=== PATIENT | female | born 1950 | race Caucasian/White ===

== ENCOUNTER 2016-05-30 19:06 | Inpatient (IN) | payer OTHER, MEDICARE ==
[~2016-05-30] VITALS: Ht 152.4 cm; Wt 57.4 kg
--- NOTE | ~2016-05-30 | ECH ---
Transthoracic Echocardiography Report (TTE) Demographics Patient Name ANGIE JEFFREY Date of Study 05/31/2016 Patient Number [id number] Visit Number [id number] Date of 1950 Room Number 313 Accession Number [id number] Gender Female Age 66 year(s) Referring King Hemanth Hilario MD Manager Human Resources Krystal Herndon [facility] Physician Lele Herrera Physician Interpreting Fadumo Robles MD Cfo Physician Supervising Ordering Physician Lele Herrera MD/BUBBAP Nurse Stress Cyber Crime Investigator Conclusions Summary Technically adequate exam. The estimated left ventricular ejection fraction is 50-55%. Segmental wall motion abnormalities noted. Diastolic assessment reveals Grade I diastolic dysfunction. No significant valvular abnormalities. Procedure Type of Study TTE procedure:Echo Complete SF. Procedure Date Date: 05/31/2016 Start: 08:29 AM Technical Quality: Good visualization Indications:Elevated Troponin. Additional Indications:history of nonischemic cardiomyopathy Appropriate Use Criteria: 9 Height: 60 inches Weight: 110 pounds BSA: 1.45 m Rhythm: Sinus tachycardia HR: 101 bpm BP: 99/67 mmHg M-Mode/2D Measurements LV Diastolic Dimension: 3.78 cm LV Systolic Dimension: 2.84 cm LV Septum Diastolic: 0.89 cm LV PW Diastolic: 0.69 cm AO Root Dimension: 2.59 cm Cardiac Output: 6.31 l/min LA Dimension: 3.21 cm Cardiac Index: 4.35 l/min*m LA volume index: 28 ml/m LVOT: 2.03 cm RV Base: 3.6 cm LVOT VTI: 19.32 cm RV Mid: 2.2 cm LV Stroke volume: 62.5 ml LV Stroke volume index: 43.1 ml/m TDI-S': 12 cm/s Doppler Measurements AV Peak Velocity: 1.2 m/s MV Peak E-Wave: 0.78 m/s AV Peak Gradient: 5.76 mmHg MV Peak A-Wave: 0.94 m/s AV Mean Gradient: 3.26 mmHg MV E/A Ratio: 0.83 LVOT Peak Velocity: 0.99 m/s MV P1/2t: 36.8 msec AV Area (Continuity):2.72 cm MV Deceleration Time: 126.9 msec TR Velocity:2.58 m/s MV Area (PHT): 5.98 cm TR Gradient:26.63 mmHg PV Peak Velocity: 0.9 m/s Estimated RAP:5 mmHg PV Peak Gradient: 3.21 mmHg Estimated RVSP: 32 mmHg Estimated PASP: 31.63 mmHg RA Area: 10.43 cm Findings Left Ventricle The left ventricle is normal in size . Diastolic assessment reveals Grade I diastolic dysfunction. Right Ventricle Normal right ventricle structure and function. Left Atrium Normal left atrial size. Right Atrium Normal right atrial size. Mitral Valve Normal mitral valve structure and function. Trivial mitral regurgitation by color Doppler. Aortic Valve The aortic valve was not well imaged. There is trivial aortic regurgitation by color Doppler. Tricuspid Valve Normal tricuspid valve structure and function. Mild tricuspid regurgitation by color Doppler. Estimated pulmonary pressures within normal range. Pulmonic Valve Normal pulmonic valve structure and function. Pericardial Effusion No evidence of pericardial effusion. Miscellaneous Visualized portions of the aortic root and ascending aorta appear normal in size. Pleural Effusion No evidence of pleural effusion. Contractility Score LV regional wall motion:(0-Non visualized 1-Normal 2-Hypokinesis 3-Akinesis 4-Dyskinesis 5-Aneurysm) Signature
--- NOTE | 2016-05-31 06:59 | ER ---
ADMIT: 05/30/2016 RM/LOC: 313 [facility] MR#: [id number] [address] [address] ANGIE JEFFREY [address] [place] [address] Emergency Room Report SEX: F AGE: 66 : 1950 DATE: 05/30/2016 CHIEF COMPLAINT: Left flank pain. HISTORY OF PRESENT ILLNESS: The patient is a 66-year-old female with complicated medical history of chronic renal lithiasis, status post recent distal right ureterectomy with ureteral neocystostomy and ureteral stent in [place] in November and subsequent stent removal by Dr. Dorado. Pancreatic cancer in 2013, status post radiation and chemo with recurrence causing ureteral obstruction in 2015. Remote breast cancer in 2000, status post lumpectomy, radiation, chemo, and nonischemic cardiomyopathy, presumably due to chemotherapy with initial echo in 2009 showing severe inferior septal hypokinesis with EF of 0.3, most recent echo in April 2015, EF 0.55 with no wall motion abnormality. The patient presents today with left flank pain associated with nausea, vomiting, chronic diarrhea that she states began late last night. Denies any cough or dysuria. ALLERGIES: NONE. MEDICATIONS: Please see nurse's MAR. ILLNESSES: Nonischemic cardiomyopathy, hypertension, kidney stones and infection. Pancreatic cancer in 2013, status post radiation and chemo. Breast cancer in 2000, status post lumpectomy, chemo and radiation. Osteoporosis, multiple right shoulder dislocations. Hypothyroidism. Pancytopenia. Pneumothorax. 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 SOCIAL HISTORY: , nonsmoker, nondrinker. No illicit drugs. FAMILY HISTORY: Loss of son due to brain cancer 13 years ago. REVIEW OF SYSTEMS: A 12-point review of systems, negative for all other systems, illnesses, or operations except as outlined above. PHYSICAL EXAMINATION: VITAL SIGNS: Temp 101.1, pulse 107, respirations 16, BP 117/74, SaO2 of 96% on room air. GENERAL: Anxious, toxic appearing without jaundice or icterus. HEENT: Normocephalic. No evidence of epistaxis, rhinorrhea, or otorrhea. NECK: Supple without lymphadenopathy or thyromegaly. CHEST: Clear. Breath sounds equal. HEART: Tachycardic, regular without murmur, gallop, or edema. ABDOMEN: Soft, nontender, nondistended without mass or megaly. Bowel sounds hypoactive. ADMIT: 05/30/2016 RM/LOC: 313 [facility] MR#: [id number] [address] [place] [phone] ANGIE JEFFREY [address] [address] Emergency Room Report SEX: F AGE: 66 : 1950 BACK: Erect. Minimal left CVA tenderness. EXTREMITIES: No evidence of Homans sign, synovitis, or dermatitis. NEURO: EOMI. PERRLA. No evidence of drift, dysarthria, or ataxia. Gait not assessed. MENTAL STATUS: Alert, oriented, and cooperative without delusions, hallucinations, or abnormal thought content. MEDICAL DECISION MAKING: The patient's screen is positive for sepsis. Given [address] renal shows 10 mm distal left ureteral stone with marked hydro and staghorn calculi. A 3 mm distal right ureteral stone with minimal hydro postoperative changes. WBC 11.8, hemoglobin 10.2, platelet 129. Lactic 1.8, CRP 3.76, creatinine 2.9, procalcitonin 0.38, magnesium 1.4, lipase 40. Troponin 0.885. UA; 52 WBCs, 25 RBCs, 1+ blood, 2+ leukocyte esterase. Culture pending and blood culture pending. EKG shows sinus tachycardia with anterior septal wall Q-waves, unchanged from previous. The patient was covered with Levaquin 500 mg IV piggyback, Zofran and Dilaudid with marked improvement of pain. No further vomiting or diarrhea. Notified Dr. Dorado of consult in morning. Discussed case with Dr. Mina Royal, who agreed and gave orders to nursing staff. Due to the patient's presentation, findings, and intervention, 60 minutes of critical care is warranted. DIAGNOSES: 1. Obstructive uropathy with pyelonephritis. 2. Acute kidney injury secondary to obstructive uropathy with pyelonephritis. 3. Pancreatic cancer, metastatic, associated with recent distal right ureterectomy with ureteroneocystostomy and ureteral stent, subsequent removal. 4. Breast cancer in remote past. ADMIT: 05/30/2016 RM/LOC: 313 [facility] MR#: [id number] [address] [place] [id number] ANGIE JEFFREY [address] [place] [address] Emergency Room Report SEX: F AGE: 66 : 1950 5. Nonischemic cardiomyopathy with normal echocardiogram in April 2015. 6. Spurious elevation of troponin related to acute kidney injury. RECOMMENDATION: Admit inpatient PCU for Dr. Royal and Estrada. ADMISSION AND DISCHARGE CONDITION: Improved. Tyler Funes MD/ jaleel JOB #: [id number] CC: Javier Royal MD, Attending Physician Javier Royal MD, Family Physician MD Carlos Noguera MD Jeanne Ross-Muhlbach, PA-C
--- NOTE | 2016-06-05 08:10 | OR ---
ADMIT: 05/30/2016 RM/LOC: 313 [facility] MR#: [id number] [address] [address] ANGELANERYREEMAANGIE MURPHY Veena [address] [place] [address] Operative/Delivery Room Report SEX: F AGE: 66 : 1950 SURGERY DATE: 05/31/2016 SURGEON: Carlos Dorado MD PREOPERATIVE DIAGNOSIS: Bilateral distal ureteral calculi. POSTOPERATIVE DIAGNOSIS: Distal left ureteral calculus with no evidence of right ureteral calculus. PROCEDURE: Cystoscopy with bilateral ureteroscopy. Left laser lithotripsy with stone extraction. Left placement of double-J ureteral stent. ANESTHETIC: General. INDICATION FOR PROCEDURES: A 66-year-old female has a history of stone disease and developed approximately 24 hours ago abdominal discomfort. She presents to the emergency room at [facility] at which time an abdominal CT scan was obtained revealing a 3 mm stone in the distal right ureter. She is admitted now for treatment. DESCRIPTION OF OPERATION: After a suitable general endotracheal anesthetic was obtained, the patient was placed in the dorsal lithotomy position with her genitalia and surrounding skin prepped and draped in usual sterile fashion. A 23-Equatorial [place]ine[place] Olympus cystoscope was inserted under direct visualization with the anterior urethra appearing to be normal. Upon entering the bladder, the trigone was well developed with the left ureteral orifice in its normal position without efflux of urine. The right ureteral orifice was right of midline near the dome of the bladder. This was patulous with clear urine noted. A 0.03 Glidewire was inserted into the left ureteral orifice and advanced past the stone. At this point, the purulent material was noted exiting the ureteral orifice. The Glidewire was advanced until the tip of the wire that was in the renal pelvis. The cystoscope was then removed leaving the Glidewire indwelling. The semi-rigid ureteroscope was then inserted over the Glidewire. The scope was advanced into the bladder and then into the left ureteral orifice. The scope was slowly advanced up the ureter and just beyond the intramural tunnel, encountered a large solitary stone. The Glidewire was then removed and a 400 micron laser fiber obtained. With the use of the holmium laser, the stone was fragmented in its entirety with all stone fragments being removed from the ureter by means of the Zero Tip stone basket. Final inspection of the ureter revealed no evidence of retained stone fragments, perforation, or injury. A 0.03 Glidewire was then inserted through the ureteroscope and advanced until the tip of the Glidewire was in the renal pelvis. The ureteroscope was then removed leaving the Glidewire indwelling. The cystoscope was then backloaded over the Glidewire and a #6-Equatorial Guinean 26 cm double-J ureteral stent was inserted over the Glidewire positioning the stent within the renal pelvis, ureter, and bladder. The string was removed from the distal end of the stent. The Glidewire was then removed leaving the stent indwelling and in good position as noted on fluoroscopy. Attention was then turned to the right ureter. The 0.03 Glidewire was inserted into the right ADMIT: 05/30/2016 RM/LOC: 313 [facility] MR#: [id number] [address] [place] [phone] ANGIE JEFFREY [address] [address] Operative/Delivery Room Report SEX: F AGE: 66 : 1950 ureteral orifice and advanced until the tip of the Glidewire was in the renal pelvis. At this point, the scope was removed leaving the Glidewire indwelling. The semi-rigid ureteroscope was then inserted over the Glidewire and advanced into the right ureteral orifice under direct vision. The entire ureter was examined without encountering any stone disease. The scope was then slowly withdrawn without additional findings. The ureteroscope was removed without incident. A #16-Equatorial [place]an Fernandez catheter was then passed per urethra into the bladder and connected to straight drainage. The patient having tolerated the procedure well, was then taken to the recovery room in satisfactory condition. Carlos Dorado MD/ jaleel JOB #: [id number] CC: Javier Royal, Attending Physician Javier Royal, Family Physician Javier Royal MD
--- NOTE | 2016-06-05 08:10 | CO ---
ADMIT: 05/30/2016 RM/LOC: 419 [facility] MR#: [id number] [address] [address] ANGELANERYREEMAANGIE MURPHY Veena [address] [place] [address] Consultation SEX: F AGE: 66 : 1950 DATE OF CONSULTATION: 05/31/2016 ATTENDING PHYSICIAN: Javier Royal CONSULTING PHYSICIAN: Carlos Dorado MD PROBLEM: Bilateral ureteral calculi. HISTORY OF PRESENT ILLNESS: This 66-year-old female presented to the emergency room at [facility] yesterday with abdominal discomfort. She does have a history of stone disease and most recently underwent a hysterectomy, at which time the distal ureter was injured and underwent a ureteral reimplantation on the right, all of which was performed in [place]. On CT scan, she was found to have a 1-cm stone in the distal left ureter with a 3-mm stone in the distal right ureter, both of which are causing obstruction. Several stones were noted in each kidney. She is admitted now for treatment of her stone disease. PAST MEDICAL HISTORY: MEDICATIONS: 1. Synthroid 88 mcg daily. 2. Potassium chloride 40 mEq b.i.d. 3. Mag ox 800 mg b.i.d. 4. Cozaar 25 mg daily. 5. Coreg 3.125 mg b.i.d. ALLERGIES: MORPHINE. OPERATIONS: As previously stated. REVIEW OF SYSTEMS: She does have a history of pancreatic carcinoma in 2013, status post radiation and chemotherapy, with recurrence causing her ureteral obstruction last year. There is also a history of breast carcinoma having undergone a lumpectomy in 2000, this was then treated with radiation and chemotherapy, developing nonischemic cardiomyopathy due to the chemotherapy. An echocardiogram in 2009 did show severe inferior septal hypokinesis. She also has a history of essential hypertension and hypothyroidism. FAMILY HISTORY: Negative for urologic problems. SOCIAL HISTORY: She is . Nonsmoker and does not drink. PHYSICAL EXAMINATION: GENERAL: This is a healthy 66-year-old, no acute distress. ABDOMEN: Soft and without tenderness, guarding or rigidity throughout, no masses were noted throughout. EXTREMITIES: Full range of motion without deformity. NEUROLOGICAL: She is grossly intact. LABORATORY DATA: Sodium is 144, potassium 4.4, chloride 114, CO2 of 18, BUN ADMIT: 05/30/2016 RM/LOC: 419 [facility] MR#: [id number] [address] [address] ANGIE JEFFREY D [address] [place] [address] Consultation SEX: F AGE: 66 : 1950 28, glucose 109, creatinine of 3.1. CBC showed a white count of 6600 and hematocrit 26.0. IMPRESSION: Bilateral ureteral calculi causing obstruction to each renal unit, the left being greater than the right. PLAN: I have recommended cystoscopy with bilateral ureteroscopy and laser lithotripsy with bilateral stent placement. This will be performed sometime this morning. EDIT: 06/01/2016 1257 dhiraj Dorado MD/ jaleel JOB #: [id number] CC: Javier Royal, Attending Physician Javier Royal, Family Physician Javier Royal MD
--- NOTE | 2016-06-05 10:40 | CO ---
ADMIT: 05/30/2016 RM/LOC: 313 [facility] MR#: [id number] [facility]#: [id number] [address] [phone] RACHELERABobbi Curiel [address] [place] [address] Consultation SEX: F AGE: 66 : 1950 DATE OF CONSULTATION: 05/31/2016 ATTENDING PHYSICIAN: Javier Royal CONSULTING PHYSICIAN: Hemanth Moore MD REASON FOR CONSULTATION: History of cardiomyopathy and need for surgery. HISTORY OF PRESENT ILLNESS: The patient is a pleasant 66-year-old, female with no known history of coronary artery disease. She had a diagnostic left heart catheterization in 2009 after a diagnosis of cardiomyopathy with an EF of 30%. The heart cath showed no coronary artery disease. She was diagnosed with a nonischemic dilated cardiomyopathy most likely due to chemotherapy after breast cancer treatment. She did have an improvement of her cardiomyopathy with an EF to 55% per her last echo in April of 2015. She denies any chest pain, tightness, or heaviness. She has not had any shortness of breath with exertion, nor she has had any palpitations or syncope. She does not feel like she is holding any fluid in her legs or her abdomen. She presented because of bilateral flank pain and was diagnosed with bilateral kidney stones. She is in need of cystoscopy with bilateral ureteroscopy and laser lithotripsy with bilateral stent placement. She does have a history of stent placement in the past. She also has a history of pancreatic cancer. She does follow regularly in our clinic with Dr. Ion Bridges and last saw him in April of 2015. PAST MEDICAL HISTORY: Anemia, pancreatic cancer, breast cancer status post lumpectomy and chemotherapy, hypothyroidism, left renal calculus and right urethral obstruction, had a hyoid tumor removed at age 3, carpal tunnel release. She also has nonischemic dilated cardiomyopathy, along with hypertension. REVIEW OF SYSTEMS: Unable to obtain as the patient has intractable nausea and vomiting at this time other than what was reviewed in the HPI. FAMILY HISTORY: Positive for family history of diabetes along with prostate cancer, stroke, and a son who of brain cancer at age 18. SOCIAL HISTORY: She is . Her is in the room with her today. She was a homemaker. She has 1 son and 8 daughters. She has never smoked and does not use any alcohol. MEDICATIONS: Medications that she was taking at home include: 1. Coreg 3.125 mg one p.o. b.i.d., along with Cozaar 25 mg one p.o. daily. 2. Mag-Ox 800 mg b.i.d. 3. Potassium chloride 40 mEq b.i.d. 4. Synthroid 88 mcg daily. 5. Hydrocodone APAP q.4 hours p.r.n. 6. Lomotil one tab q.6 hours p.r.n. ADMIT: 05/30/2016 RM/LOC: 313 [facility] MR#: [id number] [address] [place] [phone] AGNIE JEFFREY [address] [place] [address] Consultation SEX: F AGE: 66 : 1950 ALLERGIES: SHE IS ALLERGIC TO MORPHINE. PHYSICAL EXAMINATION: Per Dr. Moore: VITAL SIGNS: Temp 98.3, pulse 91, respirations 19, blood pressure 107/65, O2 saturation 95%. Her blood pressures have ranged from the lower systolic of 87 to a high of 107. GENERAL: Ill-appearing, very nauseated, vomiting multiple times while we are in the room. SKIN: [place], warm and dry. EYES: Sclerae clear. No xanthelasmas. ENT: Oral mucosa is pink and moist. No jugular venous distention or carotid bruits. CHEST: Respirations are even and unlabored. Lungs are clear to auscultation. HEART: Regular rate and rhythm. Normal S1, S2. No murmurs, rubs or gallops. ABDOMEN: Soft and nontender. MUSCULOSKELETAL: Gait is normal. EXTREMITIES: Peripheral pulses palpable. No clubbing, cyanosis or edema. PSYCHIATRIC: Alert and oriented. Mood and affect are appropriate. LABORATORY AND X-RAY DATA: Blood cultures are no growth to date. Chest x-ray shows negative single view of the chest. White blood count 6.6, red blood count 2.6, hemoglobin 8.4, hematocrit 26.0 with a platelet count of 95. Lactic acid was 1.0, procalcitonin of 0.49. Sodium of 144, potassium 4.4 with a chloride of 114, CO2 18, BUN of 28, glucose 109, creatinine 3.1, calcium 6.7, troponin of 1.110. First troponin was 0.885. CK and MB were negative. CRP was 3.78. ASSESSMENT: Per Dr. Moore: 1. Elevated troponin. 2. History of nonischemic cardiomyopathy. ADMIT: 05/30/2016 RM/LOC: 313 [facility] MR#: [id number] [address] [place] [id number] ANGIE JEFFREY [address] [place] [address] Consultation SEX: F AGE: 66 : 1950 3. Kidney stones. PLAN: Per Dr. Moore: I agree with IV fluids for support of blood pressure. She does have a previous history of nonischemic cardiomyopathy with normal coronary arteries. Her echocardiogram is pending. I believe her elevated troponin is a demand ischemia from her illness. She is okay to have surgery without further workup at this time. Again, she denies any chest pain, tightness, heaviness, or shortness of breath. We will consider ischemic evaluation as an outpatient if warranted. We will continue to monitor symptoms and diagnostics and amend our plan accordingly. Thank you for allowing us to participate in the care of this patient. MCKENNA Velasquez / Hemanth Moore MD / jaleel JOB #: [id number] CC: Javier Royal, Attending Physician Javier Royal, Family Physician
[2016-06-05] MEDS ORDERED: COREG DPS3.125 MG PO (17:51)
[2016-06-05] MEDS ORDERED: POTASSIUM CHLO20 ME2 PO (17:51)
[2016-06-05] MEDS ORDERED: SYNTHROID DP0.088 MG PO (17:51)
[2016-06-05] MEDS ORDERED: COZAAR DPS25 MG PO (17:51)
[2016-06-05] MEDS ORDERED: CREON 121 CAP PO (17:51)
[2016-06-05] MEDS ORDERED: MAGOX 400400 MG PO (17:51)
[2016-06-05] MEDS ORDERED: TYLENOL DPS325 MG PO (17:52)
[2016-06-05] MEDS ORDERED: NORCO 5-325 TA1 EACH PO (17:52)
[2016-06-05] MEDS ORDERED: LOMOTIL-DPS1 TAB PO (17:52)
[2016-06-05] MEDS ORDERED: AMOXIL-DPS500 MG PO (17:53)
--- NOTE | 2016-06-07 08:30 | HP ---
ADMIT: 05/30/2016 RM/LOC: 313 [facility] MR#: [id number] [facility]#: [id number] [address] [address] DAPHNEY JEFFREY [address] [place] [address] History and Physical SEX: F AGE: 66 : 1950 DATE OF SERVICE: CHIEF COMPLAINT: Left flank pain. HISTORY OF PRESENT ILLNESS: Daphney is a very pleasant, 66-year-old female, follows in Family Practice in [facility] with Mirta Chinchilla, presents to Emergency Department last night with the above complaints. The patient unfortunately has a complicated medical history of chronic renal lithiasis, status post recent distal right ureterectomy with ureteral neocystostomy and ureteral stent in [place] this last November and subsequent stent removal by Dr. Dorado. The patient also has a history of pancreatic cancer in 2013, status post radiation and chemo with recurrence causing ureteral obstruction in 2015. At any rate, patient having significant left flank pain. Evaluation in the Emergency Department showed a 1 cm stone in the distal ureter on the left side with significant hydronephrosis on the left side. It was also felt based on her presentation and her blood work, the patient likely had a left pyelonephritis. The patient was started on sepsis protocol, Dr. Dorado was contacted by the Emergency Department, and we were asked to admit for further workup and management of this. This morning, patient states she is feeling much improved. Still having some pain but not nearly as significant as last night. No chest pain or shortness of breath. Does admit to some chills. She did have a low-grade temp overnight just over 100. Otherwise no other associated symptoms or complaints this morning. PAST MEDICAL HISTORY: Include: 1. Hypertension. 2. Hypothyroidism. 3. History of multiple episodes of nephrolithiasis as noted above. 4. Osteoporosis. 5. Nonischemic cardiomyopathy thought to be from radiation from breast cancer. 6. History of breast cancer status post chemoradiation. April 2001, had stage I breast cancer, T1b N0 M0 infiltrating ductal carcinoma of left breast. Underwent lumpectomy, sentinel lymph node biopsy which was negative. Had 4 cycles of Adriamycin in July 2001 with Rituxan followed by radiation of the left breast. 1. History of pancreatic cancer with metastasis. Follows with Oncology. Initially diagnosed in March of 2013. From May of 2013 to present, she has been on FOLFIRINOX chemotherapy with Neulasta every 3 weeks. Has undergone radiation in January and February 2014. September 2015 showing metastatic disease. On November 09, 2015, had modified radical hysterectomy with bilateral salpingo oophorectomy for malignant right parametrial mass and had adjunctive pelvic radiation. 2. Pancytopenia. 3. History of previous pneumothorax, has since resolved. ADMIT: 05/30/2016 RM/LOC: 313 [facility] MR#: [id number] [address] [place], [place] [phone] DAPHNEY JEFFREY [address] [address] History and Physical SEX: F AGE: 66 : 1950 PAST SURGICAL HISTORY: CAD, chest tube, extracorporeal shock wave lithotripsy, holmium laser lithotripsy, multiple ureteral stents, carpal tunnel release, hyoid tumor removal as a child, hysterectomy with bilateral salpingo-oophorectomy, tonsillectomy, lumpectomy, distal right ureterectomy with ureter neocystostomy and ureteral stent in November with removal. MEDICATIONS: 1. Coreg 3.125 mg b.i.d. 2. Creon 1 to 2 caps t.i.d. with meals. 3. Cozaar 25 mg daily. 4. Mag-Ox 800 mg b.i.d. 5. Potassium chloride 40 mEq twice daily. 6. Synthroid 88 mcg daily. 7. Lortab every 4 hours p.r.n. 8. Lomotil 1 tab every 6 hours as needed p.r.n. ALLERGIES: NO KNOWN DRUG ALLERGIES. SOCIAL HISTORY: The patient is . Rodrigo is her who would make medical decisions for her if she is unable to. She is a nonsmoker, nondrinker. No other drug use. FAMILY HISTORY: Lost a son due to brain cancer 13 years ago. Otherwise noncontributory. REVIEW OF SYSTEMS: A 10-point review of systems obtained, per HPI otherwise negative. PHYSICAL EXAMINATION: VITAL SIGNS: Blood pressure 107/65, pulse 91, respirations 19, temperature 98.3, (T-max last night 100.1), 95% oxygen on room air. GENERAL: Alert and oriented x3. Does not appear to be in acute distress. HEENT: Pupils equal, round, reactive. Extraocular movements intact. Throat clear. Trachea midline. HEART: Regular rate and rhythm. No murmurs. LUNGS: Clear to auscultation bilaterally. No wheezes or crackles. ABDOMEN: Soft. Nontender. Nondistended. Left flank pain with CVA tenderness. EXTREMITIES: Without any significant edema. NEUROLOGICAL: Cranial nerves II through XII grossly intact. No focal deficits. LABORATORY DATA: White blood count 6.6, (11.8 last night with decreasing bandemia from 66% to 17%). Hemoglobin of 8.4, down from 10.2 last night. Platelets 95, down from 129 last night. CMP with a CO2 of 18 down from 19 last night. Potassium 4.4. Creatinine up to 3.1 from 2.9. Albumin 2.0. IMAGING: Showing a 1 cm stone, distal left ureter with severe left hydronephrosis, this is an abdominal pelvic CT scan. A 3 mm calculus, distal right ureter with [id number] right hydronephrosis, moderate amount of ADMIT: 05/30/2016 RM/LOC: 313 [facility] MR#: [id number] [address] [address] DAPHNEY JEFFREY [address] [place] [address] History and Physical SEX: F AGE: 66 : 1950 right renal atrophy. Bilateral nonobstructive renal calculi. Post hysterectomy. ASSESSMENT AND PLAN: This is a 66-year-old female with. 1. Bilateral obstructive uropathy. 2. Left pyelonephritis. 3. Sepsis, mild. 4. Acute kidney injury secondary to #1. 5. Elevated troponin, likely secondary to acute kidney injury. 6. History of nonischemic cardiomyopathy. 7. Anemia, dilutional. 8. Thrombocytopenia, mild. 9. Malnutrition. 10.Metabolic acidosis, mild. 11.Pancreatic cancer with mets status post multiple surgeries as noted above. 12.Volume depletion. 13.History of breast cancer. PLAN: The patient is currently stable. I have discussed with Dr. Dorado with Urology. Plan for lithotripsy and bilateral stenting later today. The patient has gmot-mr-intkyttr risk for procedure. We will have Cardiology evaluate. I am unsure with her history of nonischemic cardiomyopathy, what her actual ejection fraction is, we will try to get an echo today. Given her cardiac history and elevated troponin, we will have Cardiology see. She is currently chest pain free and no EKG changes with ischemia and troponin likely from kidney injury, however, we do appreciate Cardiology's input. Continue IV antibiotics, fluid hydration, and other supportive cares. Twenty-five minutes spent toil-yp-[id number] with the patient. Greater than 35 minutes spent on overall patient care. Javier Royal MD/ jaleel JOB #: [id number] CC: Javier Royal, Attending Physician Javier Royal, Family Physician
--- NOTE | 2016-07-18 07:58 | DS ---
ADMIT: 05/30/2016 RM/LOC: 419 [facility] MR#: [id number] [address] [address] RACHELERABobbi Curiel [address] [place] [address] General Discharge Summary SEX: F AGE: 66 : 1950 ADMISSION DATE: 05/30/2016 DISCHARGE DATE: 06/04/2016 FINAL DIAGNOSES: 1. Sepsis, secondary to urinary tract infection with Streptococcus and Aerococcus. 2. Bacteremia with Aerococcus and Streptococcus. 3. Left pyelonephritis. 4. Urinary tract infection. 5. Obstructive uropathy, status post left ureteral stenting. 6. Nephrolithiasis, status post lithotripsy. 7. Pancytopenia. 8. Acute kidney injury on chronic kidney injury secondary to obstructive uropathy. 9. 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 10.History of pancreatic cancer with mets. 11.Hypothyroidism. CONSULTATIONS: Include Dr. Dorado and Dr. Moore. LABS AND IMAGING: Please refer to hospital record. OPERATIVE REPORTS: On 05/31/2016, the patient underwent cystoscopy with bilateral ureteroscopy and left laser lithotripsy with stone extraction, left placement of a double-J ureteral stent by Dr. Dorado. REASON FOR ADMISSION: Please refer to dictated H and P. Briefly, a very pleasant, 66-year-old female, follows in [facility] with Vane Larsen, presented to the Emergency Department with complaints of left flank pain and feeling ill. The patient was found to be septic. Significant past illnesses. She was found to have obstructive uropathy with a CT scan on admission, showed a 1 cm stone, distal left ureter, with severe left hydronephrosis and a 3 mm calculus, distal right ureter. The patient was admitted to ICU for further workup and management. HOSPITAL COURSE: The patient was started on broad-spectrum antibiotics. Dr. Dorado was consulted. After 24 hours of antibiotics and fluid resuscitation, the patient was taken down for the procedure as noted above. The rest of the hospital course was patient recovering and treatment of her sepsis. She greatly improved with antibiotics and fluid resuscitation. Blood cultures came back as noted above. Antibiotic course was tailored for coverage. There were no other major events during the hospitalization. The patient did have an evaluation by Cardiology prior to her procedure with her history of ADMIT: 05/30/2016 RM/LOC: 419 [facility] MR#: [id number] [address] [address] ANGIE JEFFREY [address] [place] [address] General Discharge Summary SEX: F AGE: 66 : 1950 cardiomyopathy as there was unclear history of this. Otherwise, Cardiology was not greatly involved during her hospital care. The day of discharge, the patient was much improved and in stable condition and wanting to go home. DISCHARGE MEDICATIONS: Please refer hospital record. DISCHARGE RECOMMENDATIONS: Patient instructed to follow up with primary care provider, Christopher Larsen, in 7-10 days. Instructed to take medications as prescribed. Push fluids. Instructed to follow up sooner for worsening symptoms or condition. Discharge activities took approximately 35 minutes. Javier Royal MD/ jaleel JOB #: [id number] CC: Javier Royal MD, Attending Physician Javier Royal MD, Family Physician
== END 2016-06-04 14:44 | disposition home or self-care (01) | DRG 853 ==
LOC: ER 19:06 → 4PCU 21:42 → 3ICU 21:42 → 4PCU 05-31 21:42
PROVIDERS: ADMIT Family Medicine
PROC: 0T7B8DZ Dilation of Bladder with Intraluminal Device, Via Natural or Artificial Opening Endoscopic (ICD-10-PCS; principal; 2016-05-31)
PROC: 0TC78ZZ Extirpation of Matter from Left Ureter, Via Natural or Artificial Opening Endoscopic (ICD-10-PCS; principal; 2016-05-31)
DX: A40.9 Streptococcal sepsis, unspecified (principal); D61.810 Antineoplastic chemotherapy induced pancytopenia; N17.9 Acute kidney failure, unspecified; D61.818 Other pancytopenia; C25.9 Malignant neoplasm of pancreas, unspecified; I13.0 Hypertensive heart and chronic kidney disease with heart failure and stage 1 through stage 4 chronic kidney disease, or unspecified chronic kidney disease; C79.89 Secondary malignant neoplasm of other specified sites; I50.32 Chronic diastolic (congestive) heart failure; E86.9 Volume depletion, unspecified; N13.6 Pyonephrosis; E46 Unspecified protein-calorie malnutrition; I24.8 Other forms of acute ischemic heart disease; I42.9 Cardiomyopathy, unspecified; N18.9 Chronic kidney disease, unspecified; R19.7 Diarrhea, unspecified; M81.0 Age-related osteoporosis without current pathological fracture; E03.9 Hypothyroidism, unspecified; I25.10 Atherosclerotic heart disease of native coronary artery without angina pectoris; Z85.3 Personal history of malignant neoplasm of breast

== ENCOUNTER 2016-07-08 10:41 | Day surgery (SDC) | payer OTHER, MEDICARE ==
[~2016-07-08] VITALS: Ht 152.4 cm; Wt 43.6 kg
[~2016-07-08 10:41] MED LIST changes: -CALCIUM GLUCONA50 MG PO; -DIFLUCAN DPS200 MG PO; -KLOR-CON 1010 MEQ PO; -LEVAQUIN DPS250 MG PO; -MAGNESIUM GLUC500 GM PO; -MARYS PO; -PHENAZOPYRIDIN100 MG PO; -SYNTHROID112 MCG PO
--- NOTE | 2016-07-18 11:38 | OR ---
ADMIT: 07/08/2016 RM/LOC: SSS [facility] MR#: [id number] [address] [address] ANGELANERYREEMAANGIE MURPHY Veena [address] [place] [address] Operative/Delivery Room Report SEX: F AGE: 66 : 1950 CORRECTED: 07/12/201606 NJV SURGERY DATE: 07/08/2016 SURGEON: Josh Lofton MD PREOPERATIVE DIAGNOSES: 1. Symptomatic left distal ureteral calculus. 2. Left renal calculi. POSTOPERATIVE DIAGNOSES: 1. Symptomatic left distal ureteral calculus. 2. Left renal calculi. PROCEDURES: Cystoscopy with left retrograde pyelogram, left ureteroscopy with holmium laser lithotripsy, stone basket extraction, and left ureteral stent placement. ANESTHESIA: General. SPECIMENS: Stone fragments and urine culture. INDICATION: The patient is a pleasant white female, with long history of stone disease involving the left renal unit. She presents with just not feeling well. KUB demonstrates evidence of a 9 mm distal ureteral calculus and some larger stones projected over the left renal unit. The patient, secondary to symptoms, has elected intervention. Risks and benefits have been discussed, preoperative antibiotics given. Preoperative labs outlined in previously dictated addendum to H and P from the office. PROCEDURE IN DETAIL: The patient was taken to OR #5, placed on the table in supine position. After adequate anesthesia, transferred to dorsal lithotomy position, prepped and draped in the usual fashion. A time-out was taken for patient's name, date of , planned procedure, preoperative antibiotics and allergies. A 22-Angolan cystoscope with 30-degree lens advanced to the level of bladder. The scope was then broken. A urine culture was obtained before introducing irrigation into the bladder lumen. The urethra was unremarkable. Left ureteral orifice was normal. Right ruth ureteral orifice was patent. No evidence of stone debris within the bladder. No mucosal lesions noted. Retrograde pyelogram was performed with an 8-Angolan cone-tipped catheter. The intramural tunnel was quite stenotic. Filling defect consistent with stone as noted on KUB. [id number] dilatation of proximal collecting system. At this point, the cone-tipped catheter was removed and an angled tip Glidewire was advanced past the level of stone and advanced into the upper collecting system under fluoroscopic visualization. The cystoscope was removed. The guidewire secured as safety wire. ADMIT: 07/08/2016 RM/LOC: [facility] MR#: [id number] [address] [address] ANGIE JEFFREY [address], [place] [address] Operative/Delivery Room Report SEX: F AGE: 66 : 1950 Semirigid ureteroscope was advanced to the level the left ureteral orifice. A secondary guidewire was placed in train track technique, I was able access the distal ureter and the stone was visualized. Using a 400 micron holmium laser fiber with settings of 800 mJ and 8 Hz, the stone was fragmented aggressively. I did this because there was quite a bit of inflammation and stenosis just distal to where the stone had been sitting. This went quite nicely. A 0 tip stone basket was then passed and all stone fragments were evacuated from the distal ureter. Stone fragments were sent for subsequent analysis. On final pass of ureteroscope, just some fine stone debris within the ureter. Quite a bit of inflammation just distal to where the stone had been impacted and through the intramural tunnel, I elected to place a stent. The indwelling safety wire was back loaded through the cystoscope, this was advanced to the level of bladder. Under direct fluoroscopic visualization, a 6- Angolan 26 cm double-J stent was placed. With removal of guidewire, we had a nice curl within renal pelvis, nice curl within the urinary bladder. The bladder was irrigated of all fine stone debris, finally decompressed, and the scope withdrawn. The patient was taken out of dorsal lithotomy position, extubated uneventfully, and transferred to recovery room in stable condition. DISPOSITION: The patient will be discharged home later on today. DISCHARGE MEDICATIONS: Include: 1. Levaquin 250 mg 1 p.o. daily for the next 10 days. 2. Lortab 5/325, 1-2 every 4-6 hours as needed pain. 3. Pyridium 200 mg, one p.o. t.i.d. p.r.n., dispense #20. I will have the patient back in one week for a followup KUB. We will have to have a discussion regarding potential treatment of her upper tract stones. Josh Lofton MD/ jaleel JOB #: [id number] CC: Josh Lofton MD, Attending Physician Mirta Chinchilla PA-C, Family Physician CORRECTED: 07/12/2016 0806 NJDavid
--- NOTE | 2016-08-23 10:07 | HP ---
ADMIT: 07/08/2016 RM/LOC: SSS [facility] MR#: [id number] [address] [address] ANGIE JEFFREY Veena [address] [place] [address] History and Physical SEX: F AGE: 66 : 1950 CORRECTED: 07/29/2016 0753 [place] DATE OF SERVICE: ADDENDUM: The patient was evaluated with lab studies upon admission to same day surgery. Her sodium is 140, potassium 3.5, BUN and creatinine of 16 and 1.5. White blood cell count is 5.1, hematocrit is 31.9, and platelet count 154. Urinalysis demonstrated 3+ blood in the office, but no evidence of infection. The patient did have a KUB today, which demonstrates evidence of a 9 mm left distal ureteral stone. The patient has been consented for cystoscopy, left retrograde and left ureteral stent placement, ureteroscopy, holmium laser lithotripsy, and stone basket extraction. Risks and benefits were outlined in dictated H and P. Given normalcy of the patient's lab parameters, we will proceed as planned. Josh Lofton MD/ jaleel JOB #: [id number] CC: Josh Lofton MD, Attending Physician Mirta Chinchilla PA-C, Family Physician CORRECTED: 07/29/2016752 [place]
== END 2016-07-08 17:15 | disposition home or self-care (01) ==
LOC: SSS 10:41
PROC: 0TF78ZZ Fragmentation in Left Ureter, Via Natural or Artificial Opening Endoscopic (ICD-10-PCS; principal; 2016-07-08)
PROC: 0T778DZ Dilation of Left Ureter with Intraluminal Device, Via Natural or Artificial Opening Endoscopic (ICD-10-PCS; principal; 2016-07-08)
PROC: BT1FYZZ Fluoroscopy of Left Kidney, Ureter and Bladder using Other Contrast (ICD-10-PCS; principal; 2016-07-08)
DX: N20.2 Calculus of kidney with calculus of ureter (principal); N20.0 Calculus of kidney; I10 Essential (primary) hypertension; E03.9 Hypothyroidism, unspecified; Z98.890 Other specified postprocedural states; Z88.5 Allergy status to narcotic agent; Z79.899 Other long term (current) drug therapy; Z85.3 Personal history of malignant neoplasm of breast; Z90.710 Acquired absence of both cervix and uterus

== ENCOUNTER → 2016-07-08 | Outpatient (CLI) | payer OTHER, MEDICARE ==
[~2016-07-08] MED LIST: AMOXIL-DPS500 MG PO; CALCIUM GLUCONA50 MG PO; COREG DPS3.125 MG PO; COZAAR DPS25 MG PO; CREON 121 CAP PO; DIFLUCAN DPS200 MG PO; KLOR-CON 1010 MEQ PO; LEVAQUIN DPS250 MG PO; LOMOTIL-DPS1 TAB PO; MAGNESIUM GLUC500 GM PO; MAGOX 400400 MG PO; MARYS PO; NORCO 5-325 TA1 EACH PO; PHENAZOPYRIDIN100 MG PO; POTASSIUM CHLO20 ME2 PO; SYNTHROID DP0.088 MG PO; SYNTHROID112 MCG PO; TYLENOL DPS325 MG PO
== END | disposition home or self-care (01) ==
LOC: RAD.S 08:30 → SSS 10:41 → RAD.S 10:41
DX: N20.2 Calculus of kidney with calculus of ureter (principal)

== ENCOUNTER 2016-07-13 17:07 | Inpatient (IN) | payer OTHER, MEDICARE ==
[~2016-07-13] VITALS: Ht 152.4 cm; Wt 47.1 kg
--- NOTE | ~2016-07-13 | OR ---
ADMIT: 07/13/2016 RM/LOC: 401 [facility] [id number] [id number] [address] [address] NORIREEMAANGIE MURPHY Veena [address] [place] [address] Operative/Delivery Room Report SEX: F AGE: 66 : 1950 SURGERY DATE: 07/14/2016 SURGEON: Jaylan Chen MD PREOPERATIVE DIAGNOSES: 1. Odynophagia. 2. Dysphagia. 3. History of thrush in the past. POSTOPERATIVE DIAGNOSIS: Severe fungal esophagitis throughout the entire length of the esophagus. PROCEDURE PERFORMED: EGD with biopsies. ANESTHESIA: Sedation. ESTIMATED BLOOD LOSS: None. DESCRIPTION OF PROCEDURE: After appropriate informed consent was obtained, the patient was brought to the endoscopy suite. IV sedation was provided. A well-lubricated endoscope was introduced and passed down the esophagus. Immediately past the vocal cords and arytenoid cartilages, she had the beginnings of pretty severe fungal esophagitis from the proximal esophagus all the way to the GE junction. There was no bleeding, but just a lot of plaque- like whitish debris on the entire length of the esophagus. No evidence of hiatal hernia. The scope was advanced through into the stomach. The gastric mucosa looked pretty normal throughout. Just very mild irritation in the gastric antrum. The pylorus was intubated. Duodenal bulb, 2nd and 3rd portions of the duodenum appeared normal. The scope was then pulled back into the stomach, retroflexed, revealing no proximal gastritis. No hiatal hernia. Several biopsies were taken of the antrum. Then, multiple biopsies were taken of the esophagus. The stomach was then deflated and the scope was withdrawn. The patient tolerated the procedure well and was taken to the recovery room in stable condition. Jaylan Chen MD/ modl JOB #: [id number] CC: Dereck Haynes, Attending Physician Mirta Chinchilla, Family Physician Dereck Haynes MD
--- NOTE | ~2016-07-13 | CO ---
ADMIT: 07/13/2016 RM/LOC: 401 [facility] MR#: [id number] [address] [address] ANGIE JEFFREY Veena [address] [place] [address] Consultation SEX: F AGE: 66 : 1950 DATE OF CONSULTATION: 07/14/2016 ATTENDING PHYSICIAN: Dereck Haynes CONSULTING PHYSICIAN: Jaylan Chen MD ADDENDUM: CHIEF COMPLAINT: Odynophagia, past history of thrush, current history of pancreatic cancer. HISTORY OF PRESENT ILLNESS: This is a pleasant patient of Dr. Haynes, who unfortunately has advanced pancreatic cancer. She has also had some worsening pain with swallowing. She feels like she has "rock" in her upper esophagus. This feels very similar to when she had thrush couple of years ago, so I was asked to see her for possible upper endoscopy. PAST MEDICAL HISTORY: Well outlined on the chart. PHYSICAL EXAMINATION: On exam, her abdomen is thin and soft, essentially nontender at this time. ASSESSMENT: Metastatic pancreatic cancer, recent history of painful swallowing, "rock" type sensation in her proximal esophagus. PLAN: I recommended proceeding with EGD. I have gone through risks and benefits of this procedure with the patient. She understands all this and agrees to proceed. Jaylan Chen MD/ lakshmil JOB #: [id number] CC: Dereck Haynes, Attending Physician Mirta Chinchilla, Family Physician
--- NOTE | ~2016-07-13 | DS ---
ADMIT: 07/13/2016 RM/LOC: 401 [facility] MR#: [id number] [address] [address] NORIREEMAANGIE MURPHY Veena [address] [place] [address] Discharge Summary SEX: F AGE: 66 : 1950 ADMISSION DATE: 07/13/2016 DISCHARGE DATE: 07/15/2016 FINAL DIAGNOSES: 1. Dehydration. 2. Hypokalemia. 3. Metastatic pancreatic cancer. 4. Hypomagnesemia. 5. Elevated liver enzymes. 6. Dysphagia. 7. Candidal esophagitis. REASON FOR ADMISSION: This is a very pleasant, 66-year-old white female, normally cared for by MCKENNA Beebe, in our office, who has known metastatic pancreatic cancer and presented with increasing weakness, decreased appetite, weight loss, and dysphagia. She had lost 5 pounds in the last few weeks. She was found to be profoundly hypokalemic and have hypomagnesemia. Therefore, is being admitted for further workup and stabilization. HOSPITAL COURSE: She was admitted on 07/13/2016. Potassium was replaced through the IV. She was placed on a regular diet. CT scan of her abdomen and pelvis was ordered. House supplement one can t.i.d. and aggressively rehydrated with IV normal saline. Mag was replaced through the IV as well. She was monitored on telemetry. 07/13 Dr. Chi did see her and ordered a CA- 19-9. On 07/14 she felt a little better. Was having difficulty swallowing, felt that there was some discomfort there so we did ask Surgery to see for an EGD. Physical therapy was also consulted. On 07/14 she underwent an EGD, which did show fungal esophagitis, and she was started on Diflucan 200 mg daily. Speech Therapy evaluated and felt that she was okay for a regular diet with thin liquids. Dr. Chi also ordered Toma's Magic mouthwash. On 07/15 she was feeling better. Was really anxious to go home, and she was felt stable for discharge. DISCHARGE INSTRUCTIONS: 1. Levothyroxine 112 mcg daily. ADMIT: 07/13/2016 RM/LOC: 401 [facility] MR#: [id number] [address] [address] ANGIE JEFFREY [address] [place] [address] Discharge Summary SEX: F AGE: 66 : 1950 2. Creon 12,000 units, 1-2 capsules t.i.d. and 1 capsule with snacks. 3. Potassium chloride 10 mEq b.i.d. 4. Magnesium gluconate 250 mg b.i.d. 5. Levofloxacin 250 mg daily. 6. Phenazopyridine 100 mg 2 tabs t.i.d. p.r.n. 7. Lomotil 2.5 mg p.r.n. 8. Tylenol 650 mg p.r.n. 9. Diflucan 10 mg daily for 10 days. 10.Toma's Magic mouthwash 10 mL p.o. q.4-6 hours p.r.n. Diet as tolerated. Follow up with Mrita Chinchilla PA-C, as needed. Follow up with Dr. Chi per his wishes. Dereck Haynes MD/ dhiraj JOB #: [id number] CC: Dereck Haynes MD, Attending Physician Mirta Chinchilla PA-C, Family Physician
[~2016-07-13 17:07] MED LIST changes: -CALCIUM GLUCONA50 MG PO; -DIFLUCAN DPS200 MG PO; -KLOR-CON 1010 MEQ PO; -LEVAQUIN DPS250 MG PO; -MAGNESIUM GLUC500 GM PO; -MARYS PO; -PHENAZOPYRIDIN100 MG PO; -SYNTHROID112 MCG PO
--- NOTE | 2016-07-15 15:08 | CO ---
ADMIT: 07/13/2016 RM/LOC: 401 [facility] MR#: [id number] [address] [address] DAPHNEY VINCENT [address] [place] [address] Consultation SEX: F AGE: 66 : 1950 DATE OF CONSULTATION: 07/15/2016 ATTENDING PHYSICIAN: Dereck Haynes CONSULTING PHYSICIAN: Lo Sepulveda APRN TIME IN: 11:30. TIME OUT: 12:40. REASON FOR CONSULTATION: Supportive care consultation was requested by Dr. Haynes for discussion of goals for care and discharge options. HISTORY OF PRESENT ILLNESS: Daphney is a very pleasant 66-year-old female with an unfortunate history of pancreatic cancer. She also has a history of breast cancer, which was diagnosed in 2001 for which she received radiation and chemotherapy. She has been diagnosed with pancreatic cancer in 2012. She has received chemotherapy and radiation therapy. In September of 2015, she had a modified radical hysterectomy with bilateral salpingo-oophorectomy for malignant right parametrial mass and also had pelvic radiation at that time. She actually done fairly well, but more recently was noted to have another lesion on the pancreas. She follows with Dr. Chi. At this point, she is refusing chemotherapy. She was admitted to the hospital on July 13 with weakness, dysphagia, and weight loss. She had recently been hospitalized with urosepsis and was found to have nephrolithiasis for which she underwent lithotripsy and stent. She underwent an EGD yesterday that showed fungal esophagitis, and she is now being treated for this. At this point, she has improved significantly and the plan is for her to likely discharge later today. The patient and her family have had some concerns regarding support after the hospital stay and what the goals are for the time ahead. Due to her complexities, supportive care consultation was requested to discuss goals and also to discuss options after the hospital. In terms of advanced directives, the patient is a full code. I do not see that she has a POLST form or living will on file. In terms of medical decision making, the patient's , Rodrigo Vincent, whose phone number is [phone] and [phone] is the patient's next of kin medical decision maker. She also has 8 daughters, who are involved with her care as well. Physically, the patient denies pain or other physical complaints at this time. She does appear weak and debilitated. PAST MEDICAL HISTORY: Breast cancer, pancreatic cancer, hypertension, hypothyroidism, coronary artery disease, laxity of the right shoulder prone to easy dislocation. PAST SURGICAL HISTORY: Hysterectomy, left breast lumpectomy, recent lithotripsy with ureter stent placement, carpal tunnel release, and thyroid tumor removal. ADMIT: 07/13/2016 RM/LOC: 401 [facility] MR#: [id number] [address] [place], [place] [id number] DAPHNEY VINCENT D [address] [place] [address] Consultation SEX: F AGE: 66 : 1950 ALLERGIES: THE PATIENT IS ALLERGIC TO MORPHINE. CURRENT MEDICATIONS: 1. Caltrate. 2. Magic mouthwash. 3. Creon. 4. Magnesium oxide. 5. Potassium chloride. 6. Synthroid. 7. Lomotil. 8. Pyridium. 9. Creon. 10.Diflucan. 11.Maalox. 12.Tylenol. 13.Surfak. 14.Nitrostat. 15.Levaquin. 16.Calcium gluconate. SOCIAL HISTORY: The patient was living at home prior to this hospital stay. She does not use alcohol, drugs, or tobacco. FAMILY HISTORY: Reviewed and noncontributory. FUNCTIONAL REVIEW: Prior to her hospital stay, she was living at home. It sounds like most recently, she was needing some assistance with ADLs as she had become fairly weak prior to hospital stay. Her intake was reduced. Her palliative performance scale prior to admission was around 60%. Currently, she is mostly in the bed. She is requiring considerable assistance with ADLs. Her intake is improving. Her palliative performance scale currently is a 50%. She has had significant weight loss, weighing around 120 in May and most recently weighing around 100 pounds, REVIEW OF SYSTEMS: A 10-point review of systems was completed and other than those pertinent positives and negatives mentioned in the HPI, it is negative. PHYSICAL EXAMINATION: GENERAL. The patient is examined in bed. She is in no acute distress. VITAL SIGNS: Temperature 97.8, pulse 77, respirations 16, blood pressure 101/68, and oxygen 95% on room air. HEENT: Head is normocephalic. Pupils are equal, round, and reactive with a diameter of 3 mm bilaterally. Oral mucosa pink and moist with fair dentition. NECK: Supple. RESPIRATORY: Respirations are equal, nonlabored at rest. Lungs diminished in the bases bilaterally. CARDIOVASCULAR: Rate and rhythm regular without murmurs, rubs, or gallops. No edema noted. ADMIT: 07/13/2016 RM/LOC: 401 [facility] MR#: [id number] [address] [place] [id number] DAPHNEY VINCENT [address] [place] [address] Consultation SEX: F AGE: 66 : 1950 GASTROINTESTINAL: Soft, nontender. Bowel sounds are positive. MUSCULOSKELETAL: No obvious joint deformities. INTEGUMENTARY: Skin turgor is fair. No rashes or wounds noted. NEUROLOGIC: Alert and oriented x3. PSYCHIATRIC: Calm and cooperative. No agitation or delirium noted. DIAGNOSTIC DATA: Sodium 146, potassium 4.1, BUN 8, creatinine 1.1, total protein 4.5, albumin 1.9. WBC is 3.7, hemoglobin 9.3, hematocrit 27.9, and platelets 111. IMPRESSION: 1. Fatigue. 2. Malaise. 3. Severe protein-calorie malnutrition. 4. Metastatic pancreatic cancer. 5. History of left nephrolithiasis with recent lithotripsy and stent placement. 6. Hypertension. 7. Nonischemic cardiomyopathy secondary to chemo. 8. History of breast cancer. 9. Palliative care. 10.The patient is a full code. PLAN: 1. I was able to have a long meeting with the patient as well as her and daughters at the bedside. Social Work was present for our meeting as well. The patient is alert and oriented and able to participate in medical decision making. We reviewed the patient's overall status and goals for the time ahead. The patient is hopeful that she will continue to improve. She is very clear that she does not desire any further chemotherapy. She is open to radiation if possible. She states that she has many affairs that she needs to get in order in the time ahead and is also planning on taking a trip to [place] in the near future. At this point, the patient's family is concerned that she needs an extra layer of medical support at home after discharge to hopefully prevent rehospitalization. We did have a lengthy discussion regarding her goals in the differences between home health care and hospice care. I discussed the hospice philosophy and benefit at length. At this time, it is very clear that the patient is not ready for hospice from a philosophical perspective. Although, she acknowledges that this will likely be something she will need to pursue in the time ahead. At this time, she would like to proceed with home health care and follow up with Oncology as well as her primary care physician and Urology to continue treatments for her various issues. She does confirm that chemotherapy is not something that she would ever pursue again. I am very clear with her that if she gets to the point where there is no further treatment to be offered in terms of radiation that that would be the time to consider hospice care, and she verbalizes understanding of this. The patient's family is very ADMIT: 07/13/2016 RM/LOC: 401 [facility] MR#: [id number] [address] [address] DAPHNEY VINCENT Veena [address] [place] [address] Consultation SEX: F AGE: 66 : 1950 supportive of this as well. 2. We did review code status at length including the benefit versus burden of a full code status versus do not resuscitate/do not intubate status versus a DNR only code status. At this time, the patient elects full code status. 3. At this point, the patient is nearing discharge and will hopefully go home later today. If she is still here Monday, I will follow up with her; however, I did give her the information for the ELECTRONIC SYSTEM ENGINEER at the [facility], who is assisting with palliative care services for the Oncology patients for their future reference. We would like to thank Dr. Haynes for the invitation to participate in this patient's care. Total consultation time was 70 minutes from 11:30 to 12:40 with 50 minutes from 11:30 to 12:20 spent [id number] with the patient and family discussing goals for care and providing counseling and support. The plan of care was discussed with social work as well as nursing. Lo Sepulveda, HERBIE/ lakshmil JOB #: [id number] CC: Dereck Haynes, Attending Physician Mirta Chinchilla, Family Physician
[2016-07-15] MEDS ORDERED: SYNTHROID112 MCG PO (20:58)
[2016-07-15] MEDS ORDERED: CREON 121 CAP PO ×2 (20:59)
[2016-07-15] MEDS ORDERED: KLOR-CON 1010 MEQ PO (20:59)
[2016-07-15] MEDS ORDERED: PHENAZOPYRIDIN100 MG PO (21:00)
[2016-07-15] MEDS ORDERED: LEVAQUIN DPS250 MG PO (21:00)
[2016-07-15] MEDS ORDERED: MAGNESIUM GLUC500 GM PO (21:00)
[2016-07-15] MEDS ORDERED: TYLENOL DPS325 MG PO (21:01)
[2016-07-15] MEDS ORDERED: DIFLUCAN DPS200 MG PO (21:01)
[2016-07-15] MEDS ORDERED: LOMOTIL-DPS1 TAB PO (21:01)
[2016-07-15] MEDS ORDERED: MARYS PO (21:01)
[2016-07-15] MEDS ORDERED: CALCIUM GLUCONA50 MG PO (21:02)
--- NOTE | 2016-08-03 10:45 | CO ---
ADMIT: 07/13/2016 RM/LOC: 401 [facility] MR#: [id number] [address] [address] DAPHNEY JEFFREY [address] [place] [address] Consultation SEX: F AGE: 66 : 1950 DATE OF CONSULTATION: 07/14/2016 ATTENDING PHYSICIAN: Dereck Haynes CONSULTING PHYSICIAN: Jaylan Chen MD REASON FOR CONSULTATION: Odynophagia. HISTORY OF PRESENT ILLNESS: Daphney is a very pleasant, 66-year-old female, who underwent lithotripsy with stent placement for kidney stones approximately a week ago. Around that time, she started to develop painful swallowing including solids, liquids, and medications. The pain that she experiences is deep inside her chest cavity. She denies ever having any nausea, vomiting, dark or bloody stools or constipation. She does have very loose stools; however, she has been diagnosed with pancreatic cancer that has been an ongoing issue for her and believes those symptoms are attribute to that. Approximately 2 years ago, the patient was diagnosed with thrush, which she feels that the symptoms are similar. PAST MEDICAL HISTORY: Significant for pancreatic cancer, has underwent chemotherapy, breast cancer, hypertension, hypothyroidism, coronary artery disease, significant laxity of the right shoulder, resulting in easy dislocation. PAST SURGICAL HISTORY: 1. Hysterectomy, October 2015. 2. Left breast lumpectomy, 2001. 3. No prior EGDs and 1 prior colonoscopy. 4. Recent lithotripsy with ureter stent placement. 5. Carpal tunnel release. 6. Thyroid tumor removal. ALLERGIES: TO MORPHINE. FAMILY HISTORY: Noncontributory. SOCIAL HISTORY: The patient denies ever taking alcohol, tobacco, or illicit drug use. REVIEW OF SYSTEMS: CONSTITUTIONAL: The patient denies any fever, chills, or night sweats. The rest of a comprehensive 10-point review of systems was performed and all other systems are negative. PHYSICAL EXAMINATION: GENERAL: The patient is in no acute distress. She is alert and oriented. HEENT: Head is normocephalic and atraumatic. EOMS are intact. Conjunctivae free of icterus, erythema, or pallor. Pinnae free of deformities. Nose, midline. No tracheal deviation. NECK: Supple. ADMIT: 07/13/2016 RM/LOC: 401 [facility] MR#: [id number] [address] [address] DAPHNEY JEFFREY [address] [place] [address] Consultation SEX: F AGE: 66 : 1950 SKIN: Negative for jaundice, clubbing, or edema. Positive for pallor. Negative for cyanosis. LUNGS: Clear to auscultation bilaterally. Normal respiratory effort. HEART: Distal pulses intact. Regular rate and rhythm. ABDOMEN: Soft, nondistended, and nontender. NEURO: Grossly intact. LABORATORY DATA: White blood cell count 3.7. ASSESSMENT: Odynophagia. PLAN: Plan is to have the patient undergo EGD today, performed by Dr. Chen. I discussed the risks, alternatives, benefits, and complications of EGD with the patient, to which she has agreement of this plan. I had all of her questions answered, and would like to proceed. She has been kept n.p.o., so we will go today. MCKENNA Wiggins / Jaylan Chen MD / jaleel JOB #: [id number] CC: Dereck Haynes, Attending Physician Mirta Chinchilla, Family Physician
--- NOTE | 2016-09-10 15:50 | HP ---
ADMIT: 07/13/2016 RM/LOC: 401 [facility] MR#: [id number] [address] [facility] [address] [place] [address] DAPHNEY VINCENT [address] [place] [address] History and Physical SEX: F AGE: 66 : 1950 DATE OF SERVICE: CHIEF COMPLAINT: Pain with swallowing, unable to eat or drink. ADMITTING DIAGNOSIS: Dysphagia with dehydration and electrolyte imbalance. HISTORY OF PRESENT ILLNESS: Daphney Vincent is a 66-year-old female with known carcinoma of the pancreas, who presented to our office today with complaints of weakness and dysphagia. She has been continuing to lose weight over the last month to two months and as a result of her dysphagia, she is unable to eat or drink much at all at this time. She is 5 days post lithotripsy and stent placement for nephrolithiasis. The dysphagia began sometime after the lithotripsy and stent placement. She notes that the pain is worse when she is lying down. She also notes burning when she drinks and eats. She did see Dr. Moore today for followup of her nephrolithiasis and everything was normal and as far as that is concerned today. Daphney denies that she is having difficulty with food becoming caught as she eats or pain when she is not in the process of eating. She did vomit once in the office after I had examined her throat this afternoon, suspect that was secondary to gag reflex. Otherwise, she has had no vomiting and no diarrhea. Daphney has lost considerable weight. Back in November 2015, she weighed 121 pounds. She has gradually lost weight to the point of weighing 96 pounds at this time. LABORATORY FINDINGS: Today were significant in that she has significant electrolyte imbalance. Her sodium was of 139, potassium 2.9, glucose 112, BUN 9, creatinine 1.58, calcium 7.9, albumin 2.6, total protein 6.3. She also has an elevation of her liver functions for the first time that I have seen with an AST of 403, ALT of 444, alkaline phosphatase is 235. Because of her electrolyte imbalance, weight loss, dehydration, and inability to eat and drink, she is being admitted at this time per Dr. Haynes. PERTINENT PAST MEDICAL HISTORY: Daphney was diagnosed in April 2001 with stage I breast cancer and was treated for infiltrating ductal carcinoma of the left breast with lumpectomy, sentinel node biopsy which was negative, and had 4 cycles of Adriamycin in July 2001 with Rituxan followed by radiation of the left breast. She has been diagnosed with pancreatic carcinoma in 2012. From May 2013 to the present, she has been on FOLFIRINOX chemotherapy and has undergone radiation in January-February of 2014. In September of 2015, she had a modified radical hysterectomy with bilateral salpingo-oophorectomy for malignant right parametrial mass and had adjunctive pelvic radiation at that time. Through all this time and from September till now, she has actually done quite well, although recently was noted to have another lesion in her pancreas. She was evaluated by Dr. Moore and also by the radiation oncologist, and it was determined that the radiation was not viable at this time and she refused chemotherapy. PAST SURGICAL HISTORY: Includes coronary artery disease. She has a chest tube for pneumothorax. She has had lithotripsy on several occasions. 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 Other pertinent past medical history at this time includes her chronic problems which include hypertension, hypothyroidism, osteoporosis, and she has cardiomyopathy secondary to breast radiation, and she is being followed by Dr. Ion Bridges for this. She recently had a cardiac workup including echocardiogram and stress test and those tests were very reassuring. Her stress test was negative. Her echocardiogram showed an ejection fraction of 50% to 55%. Daphney has also had recurrent shoulder dislocations and recently had shoulder dislocation. She was also hospitalized recently in May for urosepsis following renal lithiasis. CURRENT MEDICATIONS: Include: 1. Creon 12,000 units CPEP two caps with meals and one cap with snacks. 2. Lomotil 2.5/0.025 mg oral tablets q.6 hours p.r.n. diarrhea. 3. Magnesium 400 mg b.i.d. 4. Synthroid 112 mcg daily. 5. Tylenol p.r.n. for pain. She is not on any other pain medication at this time. SOCIAL HISTORY: She is post menopausal. She is a lifetime nonsmoker. She lives with her spouse, Rodrigo and he is the person who will make decisions if she is unable to in regard to her health. She has 7 daughters, one son who of a brain tumor about 13 years ago. She continues to be as active as she can. Up to this point, she had been planning a trip to [place] to take care of some real estate property that had been left to her by her father. ALLERGIES: SHE HAS A KNOWN ALLERGY TO MORPHINE. FAMILY HISTORY: Father had cancer of the prostate. Mother with history of osteoarthritis and history of seizure disorder. Mother also had stroke. REVIEW OF SYSTEMS: GENERAL: As noted previous weight loss. She denies fevers or chills. No night sweats. She denies headache or sinus pain. No hoarseness. She has had her dysphagia of course with some lower throat pain. Denies chest pain or shortness of breath. No cough. GASTROINTESTINAL: She has states that she has a decrease in appetite, is motivated to eat more which just has not been able to. Continue to maintain the calories that she should to maintain her weight. She is having nausea today, vomited only once in the office. Has had no previous history of vomiting. No abdominal pain and no diarrhea currently. She has had diarrhea certainly in the past. GENITOURINARY: As noted above. She has no hematuria, urinary frequency, urgency, or dysuria today. ADMIT: 07/13/2016 RM/LOC: 401 [facility] MR#: [id number] [address] [address] DAPHNEY VINCENT [address] [place] [address] History and Physical SEX: F AGE: 66 : 1950 MUSCULOSKELETAL: She does have some just mild muscle aches occasionally, nothing that is out of the ordinary for her today. NEUROLOGIC: She notes dizziness if she stands up a bit too fast. She denies headaches. Of course she is having some weakness today. No focal or neurologic changes. No change in vision. No history of seizure disorder. SKIN: She notes no new lesions or rashes. Remainder of the review of systems is negative and unremarkable. PHYSICAL EXAMINATION: GENERAL: Reveals an ill-appearing, thin-appearing 66- year-old female, in no acute distress. She is able to visit and communicate very easily. VITAL SIGNS: Today, reveal a blood pressure of 90/70, pulse of 114 beats per minute. She has a regular rhythm. Temperature, tympanic 98.6. Height 60 inches, weight 96 pounds. BMI 18.7 kg/m2. O2 saturation at 97%. HEENT: She is normocephalic. TMs are translucent. Oral mucous membranes are dry. Pharynx with just very mild posterior pharyngeal erythema. No further erythema is noted. No intraoral lesions noted and no dental lesions noted. NECK: Supple. No adenopathy or thyromegaly. HEART: Regular rate and rhythm, but a bit tachycardic at about 110 beats per minute on exam. No murmurs noted. CHEST: Clear to auscultation and percussion. ABDOMEN: Bowel sounds are normoactive. Abdomen is soft and nontender. No distention is noted. I could palpate the tip of her liver at the inferior rib margin at the midclavicular line. I did not note splenomegaly however. EXTREMITIES: With intact distal pulses bilaterally. She has no edema bilaterally. NEUROLOGIC: Cranial nerves II through XII are intact. PERRLA, EOMs intact. She has no focal neurologic deficits at this time. LABORATORY FINDINGS: As noted above. Also, CBC reveals a white blood cell count of 4200, hemoglobin of 11.5, RBC indices are normal, platelets are 134,000. Magnesium is 1.3. I did not repeat a urinalysis as she just had one at the urologist prior to me seeing her in the office. No imaging was done today. ASSESSMENT: 1. Electrolyte imbalance with dehydration and malnutrition. 2. Dysphagia complicating malnutrition. 3. Pancreatic cancer with history of metastasis and concern for metastasis now to the liver. 4. Hypertension. 5. Hypothyroidism. 6. Nephrolithiasis with a recent repeat lithotripsy and stent placement with history of urosepsis in May 2016. 7. Osteoporosis. ADMIT: 07/13/2016 RM/LOC: 401 [facility] MR#: [id number] [facility] [address] [address] DAPHNEY VINCENT [address], [place] [address] History and Physical SEX: F AGE: 66 : 1950 8. Nonischemic cardiomyopathy thought to be from radiation of the breast for breast cancer. 9. History of breast cancer without recurrence. PLAN: Admit to [facility] for rehydration therapy, nutritional therapy, and correction of electrolyte imbalance. We will continue to monitor and try to improve her nutritional status certainly before she is discharged to home. I did discuss any wishes she may have for hospice, and she declined hospice at this time. She has a very good family, who are very supportive. One of her daughters accompanied her today, and are in sync as to her care and wished to do everything possible to follow her wishes. Her care team includes Dr. Moore and Dr. Ion Bridges. Mirta Chinchilla PA-C / Dereck Haynes MD / jaleel JOB #: [id number] CC: Dereck Haynes, Attending Physician Mirta Chinchilla, Family Physician
== END 2016-07-15 17:45 | disposition home health service (06) | DRG 368 ==
LOC: 4PCU 17:07
PROVIDERS: ADMIT Family Medicine
DX: B37.81 Candidal esophagitis (principal); E43 Unspecified severe protein-calorie malnutrition; C79.9 Secondary malignant neoplasm of unspecified site; I42.9 Cardiomyopathy, unspecified; C25.9 Malignant neoplasm of pancreas, unspecified; R13.10 Dysphagia, unspecified; E87.8 Other disorders of electrolyte and fluid balance, not elsewhere classified; E83.42 Hypomagnesemia; E86.0 Dehydration; Z68.1 Body mass index [BMI] 19.9 or less, adult; E87.6 Hypokalemia; R79.89 Other specified abnormal findings of blood chemistry; I10 Essential (primary) hypertension; I25.10 Atherosclerotic heart disease of native coronary artery without angina pectoris; E03.9 Hypothyroidism, unspecified; M81.0 Age-related osteoporosis without current pathological fracture; Z85.3 Personal history of malignant neoplasm of breast; Z96.89 Presence of other specified functional implants; Z85.42 Personal history of malignant neoplasm of other parts of uterus

== ENCOUNTER → 2016-07-13 | Outpatient (CLI) | payer OTHER, MEDICARE ==
[~2016-07-13] MED LIST changes: +CALCIUM GLUCONA50 MG PO; +DIFLUCAN DPS200 MG PO; +KLOR-CON 1010 MEQ PO; +LEVAQUIN DPS250 MG PO; +MAGNESIUM GLUC500 GM PO; +MARYS PO; +PHENAZOPYRIDIN100 MG PO; +SYNTHROID112 MCG PO
== END | disposition home or self-care (01) ==
LOC: RAD.S 10:51
DX: N20.1 Calculus of ureter (principal); N28.89 Other specified disorders of kidney and ureter; Z96.0 Presence of urogenital implants

== ENCOUNTER → 2016-08-11 | Outpatient (CLI) | payer OTHER, MEDICARE ==
[~2016-08-11] MED LIST changes: +CALCIUM GLUCONA50 MG PO; +DIFLUCAN DPS200 MG PO; +KLOR-CON 1010 MEQ PO; +LEVAQUIN DPS250 MG PO; +MAGNESIUM GLUC500 GM PO; +MARYS PO; +PHENAZOPYRIDIN100 MG PO; +SYNTHROID112 MCG PO
== END | disposition home or self-care (01) ==
LOC: RAD.S 10:37
DX: C25.0 Malignant neoplasm of head of pancreas (principal); C57.3 Malignant neoplasm of parametrium; K80.20 Calculus of gallbladder without cholecystitis without obstruction; K76.89 Other specified diseases of liver; R18.8 Other ascites; Z85.3 Personal history of malignant neoplasm of breast

== ENCOUNTER 2016-09-28 07:34 | Day surgery (SDC) | payer OTHER, MEDICARE ==
[~2016-09-28] VITALS: Ht 152.4 cm; Wt 46.9 kg
--- NOTE | 2016-10-14 08:33 | OR ---
ADMIT: 09/28/2016 RM/LOC: [facility] MR#: [id number] [address] [id number] RACHELEANGIE Veena [address] [place] [address] Operative/Delivery Room Report SEX: F AGE: 66 : 1950 SURGERY DATE: 09/28/2016 SURGEON: Josh Lofton MD PREOPERATIVE DIAGNOSIS: Left renal stone status post stent placement. POSTOPERATIVE DIAGNOSIS: Left renal stone status post stent placement. PROCEDURES: Cystoscopy with left stent change and left ESWL. ANESTHESIA: General. INDICATIONS: The patient is a pleasant white female with pancreatic cancer. She presented initially with a large distal ureteral stone which was treated with ureteroscopic laser lithotripsy and stent placement. This was back in June. Secondary to interval illness as well as need for radiation therapy, treatment for her renal stone has been delayed. She presents today finally in relatively good health and spirits for cystoscopy, left stent change, and left ESWL. Risks and benefits have been outlined to the patient previously during clinic visit, reinforced today. Informed consent obtained. Patient does consent to procedures. Preoperative antibiotics given. PROCEDURE IN DETAIL: Patient taken to taken to OR #5, placed on the table in supine position. After adequate anesthesia, transferred to dorsal lithotomy position, prepped and draped in the usual fashion. A time-out was taken confirming patient name, date of , planned procedure, preoperative antibiotics and allergies. A 22-Nauruan cystoscope with 30-degree lens was advanced to the level of bladder. There was some bloody urine which was drained. My visualization is improved with just sterile water irrigation. The distal tip of the stent was encrusted. I did pass the grasping forceps so the distal tip of the stent was engaged on fluoro uneventfully. Drawn to the urethral meatus. With just gentle pressure and active fluoroscopy, the stent was withdrawn slowly. The proximal curl of the stent unfurled uneventfully and the stent came out intact. There were some encrustations intermittently which were minor along the course of the stent. I did go ahead and place the cystoscope back into the bladder. A Glidewire was advanced to the upper collecting system under fluoroscopic visualization and a 6-Nauruan 24 cm double pigtail stent was placed. With removing of the guidewire, we had a nice curl within the renal pelvis, nice curl within the urinary bladder. The bladder was decompressed. Scope withdrawn. The patient was transferred to OR #3. Carefully positioned on lithotripsy table. All pressure points were appropriately padded. Once she was adequately positioned over the therapy head, biplanar fluoroscopy was used to target the stone in the middle pole calyx. Once I was satisfied with targeting, using biplanar fluoroscopy, lithotripsy session was initiated at 16 ADMIT: 09/28/2016 RM/LOC: [facility] MR#: [id number] [address] [place] [id number] ANGIE JEFFREY [address] [place] [address] Operative/Delivery Room Report SEX: F AGE: 66 : 1950 kV, over the course of treatment gradually titrated to a maximum power of 24 kV. Periodic biplanar fluoroscopy used during the course of the procedure to ensure proper targeting. It looked like the stone responded appropriately. After 2000 shocks, the lithotripsy session was terminated. The patient was awoken from anesthesia, extubated uneventfully, and transferred to recovery room in stable condition. DISPOSITION: The patient will be discharged home later on today. Discharge medications include Lortab 5/325, 1-2 every 4-6 hours as needed for pain, dispense #40. Levaquin 250 mg 1 p.o. daily, dispense #10. I will have the patient back in 7 to 10 days for followup urinalysis and KUB. She is instructed to strain her urine. Josh Lofton MD/ jaleel JOB #: [id number] CC: Josh Lofton, Attending Physician Mirta Chinchilla, Family Physician
== END 2016-09-28 14:45 | disposition home or self-care (01) ==
LOC: SSS 07:34
DX: N20.0 Calculus of kidney (principal); Z98.890 Other specified postprocedural states; E07.9 Disorder of thyroid, unspecified; Z90.710 Acquired absence of both cervix and uterus; Z79.899 Other long term (current) drug therapy; Z88.5 Allergy status to narcotic agent; Z85.820 Personal history of malignant melanoma of skin

== ENCOUNTER → 2016-10-04 | Outpatient (CLI) | payer OTHER, MEDICARE | END | disposition home or self-care (01) | LOC: RAD.S 12:52 | DX: R60.0 Localized edema (principal); R94.31 Abnormal electrocardiogram [ECG] [EKG] ==

== ENCOUNTER → 2016-10-04 | Outpatient (CLI) | payer OTHER, MEDICARE | END | disposition home or self-care (01) | LOC: RAD.S 15:00 | DX: C25.9 Malignant neoplasm of pancreas, unspecified (principal); K86.89 Other specified diseases of pancreas; R16.0 Hepatomegaly, not elsewhere classified; R93.2 Abnormal findings on diagnostic imaging of liver and biliary tract; K80.20 Calculus of gallbladder without cholecystitis without obstruction; R18.8 Other ascites; R60.9 Edema, unspecified ==